=== PATIENT | male | born 1990 ===

== ENCOUNTER → 2018-03-29 | Outpatient (CLI) | payer BC ==
[~2018-03-29] VITALS: Ht 182.9 cm; Wt 119.0 kg
[~2018-03-29] MED LIST: CYMBALTA60 MG PO; FLEXERIL PO; NORCO 5-325 TA1 EACH PO
[2018-03-29 08:54] VITALS: BP 130/90
--- NOTE | 2018-03-29 09:04 | NUR ---
Pain Clinic Assessment: 1. History of Osteoarthritis: Not Applicable History of Rheumatoid Arthritis: Not Applicable 2. Height: 6 ft. 0 in. 182.9 cm. Weight: 262.4 lb. oz. 119.024 kg. Patient's BMI: 35.6 3. Vital Signs: BP: 130/90 Pulse: 96 Resp: 16 Temp: 02 Sat: 97 ECG Mon: 4. Pain Intensity: 5 5. Fall Risk: Dizziness: N Needs help standing or walking: N Fallen in the last 3 months: N Fall risk comments: 6. Patient on Blood Thinner: None 7. History of Hypertension: N 8. Opioid Therapy greater than 6 weeks: N Opiate Contract Signed: 9. Risk Assessment Tool Provided: 10. Functional Assessment Tool: 11. Recreational Drug Use: Never Drug Type: Tobacco Use: Current Some Day Smoker Tobacco Type: Cigars Amount or Packs/day: 1 YEAR How Many Years: Alcohol Use: Yes Frequency: Special Occasions Quant: 1-2
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
== END | disposition home or self-care (01) ==
LOC: PAIN 08:35
DX: G97.1 Other reaction to spinal and lumbar puncture (principal); M54.5 Low back pain; M54.6 Pain in thoracic spine; G89.29 Other chronic pain; F17.210 Nicotine dependence, cigarettes, uncomplicated; Z88.0 Allergy status to penicillin; Z88.2 Allergy status to sulfonamides; Z98.890 Other specified postprocedural states; Z79.899 Other long term (current) drug therapy; Z79.891 Long term (current) use of opiate analgesic

== ENCOUNTER → 2018-04-26 | Outpatient (CLI) | payer BC ==
[~2018-04-26] VITALS: Ht 182.9 cm; Wt 118.8 kg
[2018-04-26 08:48] VITALS: BP 124/86
--- NOTE | 2018-04-26 08:49 | NUR ---
Pain Clinic Assessment: 1. History of Osteoarthritis: Not Applicable History of Rheumatoid Arthritis: Not Applicable 2. Height: 6 ft. 0 in. 182.9 cm. Weight: 262.0 lb. oz. 118.843 kg. Patient's BMI: 35.5 3. Vital Signs: BP: 124/86 Pulse: 91 Resp: 18 Temp: 02 Sat: 97 ECG Mon: 4. Pain Intensity: 5 5. Fall Risk: Dizziness: Y Needs help standing or walking: N Fallen in the last 3 months: N Fall risk comments: 6. Patient on Blood Thinner: None 7. History of Hypertension: N 8. Opioid Therapy greater than 6 weeks: N Opiate Contract Signed: 9. Risk Assessment Tool Provided: 10. Functional Assessment Tool: 11. Recreational Drug Use: Never Drug Type: Tobacco Use: Current Some Day Smoker Tobacco Type: Amount or Packs/day: How Many Years: Alcohol Use: Yes Frequency: Weekly Quant: 1
--- NOTE | 2018-05-03 07:49 | HPC ---
[facility] [address] [place] [address] PAIN MANAGEMENT CONSULTATION Name: SERA LEONG Room #: REG CLDianelys M.R.#: [id number] Admission: 04/26/18 ������������������ Attend Phys: Jones Rosales DO Discharge: ������������������ Date of : 92 Report #: [id number] THIS REPORT FOR: //name// CC: Dr. Nhan Justin DATE OF SERVICE: 04/26/2018 CHIEF COMPLAINT: Myofascial pain. HISTORY OF PRESENT ILLNESS: As you know, the patient is a 27-year-old male who we saw in consultation per the request of his neurosurgeon, Dr. Justin to undergo an epidural blood patch to address post-dural puncture headache. He did very well with that procedure with 100% resolution of his headache pain. He apparently returned to see Dr. Justin recently and he was diagnosed with myofascial pain, referred to our clinic to trial trigger point injections. He indicates pain level of 5/10 today. He denies injury or trauma that may have led to symptom occurrence. He states that he is being evaluated for possible surgical options, but the myofascial symptoms became intense enough that the patient was referred to our clinic to trial trigger point injections. He indicates pain is exacerbated with certain activities, improves with rest and relaxation. ALLERGIES: PENICILLIN, SULFAMETHOXAZOLE, TRIAMTERENE, and AMOXICILLIN. CURRENT MEDICATIONS: Duloxetine 60 mg once a day, hydrocodone 5/325 one tab p.o. q. 4 hours p.r.n. for pain, and Flexeril 10 mg p.o. at bedtime. SOCIAL HISTORY: The patient is a nonsmoker. He denies IV or illicit drug use. He denies any chronic alcohol use. He apparently is working, not receiving workmen's compensation, unaccompanied today. IMAGING: There is no new imaging available. PHYSICAL EXAMINATION: VITAL SIGNS: Blood pressure 124/86, pulse is 91, respiratory rate 18 and unlabored. The patient is 97% on room air, height 6 feet tall, weight 262 pounds, BMI calculated 35.5. GENERAL: Well-developed, well-nourished, well-hydrated exogenously obese 27-year-old male appearing stated age. He is in no acute distress. He is awake, alert, and oriented x3. Pain is rated around 5/10. HEENT: Normocephalic, atraumatic. Pupils equal, round, reactive to light. EXTREMITIES: Show no clubbing, no cyanosis, no edema. MUSCULOSKELETAL: The patient has multiple tender points throughout the thoracic and lumbar area. We were able to elicit 16 different [place] [address] PAIN MANAGEMENT CONSULTATION Name: SERA LEONG Room #: REG CLDianelys Amin#: [id number] Admission: 04/26/18 ������������������ Attend Phys: Jones Rosales DO Discharge: ������������������ Date of : 92 Report #: [id number] paraspinal musculature of the thoracic and lumbar area. There is no noted spinous process tenderness. Muscle strength is equal and symmetrical in upper and lower extremities 5/5. Deep tendon reflexes are symmetrical as well in upper and lower extremities. ASSESSMENT: 1. Myofascial pain. 2. Muscle spasms. 3. Intractable pain. PLAN: 1. The patient has been referred back to our clinic to trial trigger point injections to determine if this can improve the patient's myofascial symptoms. By physical exam today, it does appear he is suffering from some myofascial issues. They appeared to be fairly minor at this point though the patient is complaining of pain at 5/10. He indicates he is unable to go about activities of daily living due to this pain generation. He has requested the trigger point injections be provided today. We had 16 different trigger points 8 on the right and 8 on the left in pairs correlating the patient's symptoms. We discussed the risks and benefits of this procedure. The following was discussed with the patient today. 2. We discussed the risks that include but are not necessarily limited to bleeding, bruising, infection, worsening pain, no relief of pain, also risk of temporary or permanent muscle weakness, temporary or permanent nerve damage, possible paralysis, pneumothorax, and . The patient states understood and wished to proceed. 3. No medication changes made at today's visit. The patient will continue current medication management as prior prescribed. 4. We will see the patient back in followup visit on an as needed basis. PROCEDURE NOTE: DESCRIPTION OF PROCEDURE: Trigger point injections. After obtaining written consent, the patient was placed in a supine position, by palpating using a single finger 16 trigger points were identified that caused the patient's typical radiating pain pattern. These were marked and sterilely prepped with chlorhexidine. A 27-gauge 1-1/4 inch needle was then advanced into each of the trigger points until the patient's typical radiating pain pattern was reproduced. After negative aspiration for heme, 1 mL of a solution containing 1 mL 40 mg per mL, 40 mg total triamcinolone, and 15 mL of bupivacaine 0.5% injected in a fanned out distribution at each of the sites for a total of 16 mL of solution being provided. Sterile bandages were placed over each injection sites. [address] [address] PAIN MANAGEMENT CONSULTATION Name: SERA LEONG Room #: REG CLI Deyanira.#: [id number] Admission: 04/26/18 ������������������ Attend Phys: Jones Rosales DO Discharge: ������������������ Date of : 92 Report #: [id number] The patient tolerated procedure well, carefully escorted to recovery room in stable condition. VAS rated at 5/10 before procedure, 4/10 after procedure. After meeting discharge criteria, the patient discharged home. ��������������������������������������������� <ELECTRONICALLY SIGNED> ���������������������������������������� By: Jones Rosales DO ��������������������������������������������� 05/03/18 0749 0729 0917 Jones Rosales DO /nt
== END | disposition home or self-care (01) ==
LOC: PAIN 06:58
DX: M79.18 Myalgia, other site (principal); G89.29 Other chronic pain; F17.200 Nicotine dependence, unspecified, uncomplicated; Z79.891 Long term (current) use of opiate analgesic; Z88.0 Allergy status to penicillin; Z88.2 Allergy status to sulfonamides; Z88.8 Allergy status to other drugs, medicaments and biological substances; Z98.890 Other specified postprocedural states

== ENCOUNTER → 2018-05-23 | Outpatient (CLI) | payer BC ==
[~2018-05-23] VITALS: Ht 182.9 cm; Wt 117.7 kg
[2018-05-23 08:59] VITALS: BP 118/72
--- NOTE | 2018-05-23 09:19 | NUR ---
Pain Clinic Assessment: 1. History of Osteoarthritis: Not Applicable History of Rheumatoid Arthritis: Not Applicable 2. Height: 6 ft. 0 in. 182.9 cm. Weight: 259.4 lb. oz. 117.663 kg. Patient's BMI: 35.2 3. Vital Signs: BP: 118/72 Pulse: 96 Resp: 14 Temp: 02 Sat: 96 ECG Mon: 4. Pain Intensity: 5 5. Fall Risk: Dizziness: Y Needs help standing or walking: N Fallen in the last 3 months: N Fall risk comments: 6. Patient on Blood Thinner: None 7. History of Hypertension: N 8. Opioid Therapy greater than 6 weeks: N Opiate Contract Signed: 9. Risk Assessment Tool Provided: 10. Functional Assessment Tool: 11. Recreational Drug Use: Never Drug Type: Tobacco Use: Current Some Day Smoker Tobacco Type: Cigars Amount or Packs/day: How Many Years: Alcohol Use: Yes Frequency: Weekly Quant:
--- NOTE | 2018-05-24 09:13 | HPC ---
[facility] [address] [place] [address] PAIN MANAGEMENT CONSULTATION Name: SERA LEONG Room #: REG CLI M.R.#: [id number] Admission: 05/23/18 ������������������ Attend Phys: Jones Rosales DO Discharge: ������������������ Date of : 92 Report #: [id number] THIS REPORT FOR: //name// CC: Jones Justin MD DATE OF SERVICE: 05/23/2018 CHIEF COMPLAINT: Myofascial pain. HISTORY OF PRESENT ILLNESS: As you know, the patient is a 27-year-old male who was seen in our clinic, 03/29/2018 per the request of Dr. Justin for the patient to undergo an epidural blood patch for post-dural puncture headache. We had complete resolution of symptoms after a single epidural blood patch performed on that day. He was referred back to our clinic on 04/26/2018 complaining of myofascial pain involving the thoracic and lumbar area. This referral was per the request of Dr. Justin to undergo trigger point injections for which the patient underwent the procedure on that visit. He reports on return visit today, he received 24 hours' worth of pain relief, but his pain subsequently returned to a level of 5/10. He returns to discuss options for treatment given the lack of efficacy with the trigger point injections. ALLERGIES: PENICILLIN, SULFAMETHOXAZOLE, TRIAMTERENE, AMOXICILLIN. CURRENT MEDICATIONS: Duloxetine 60 mg once a day, hydrocodone 5/325 one tab p.o. q. 4 hours p.r.n. for pain, Flexeril 10 mg p.o. at bedtime. SOCIAL HISTORY: The patient is a nonsmoker. Denies IV or illicit drug use. Denies any chronic alcohol use. He is working, not receiving workmen's compensation, unaccompanied today. IMAGING: No new imaging available. PHYSICAL EXAMINATION: VITAL SIGNS: Blood pressure 118/72, pulse 96, respiratory rate 14 and unlabored. The patient is 96% on room air, height 6 feet tall, weight 259.4 pounds, BMI calculated 35.2. GENERAL: Well-developed, well-nourished, well-hydrated exogenously obese 27-year-old male. He appears in no acute distress, awake, alert and oriented x 3, pain is rated at 5/10. HEENT: Normocephalic, atraumatic. Pupils equal, round, reactive to light. Speech fluent. The patient deemed a fair historian. EXTREMITIES: Show no clubbing, no cyanosis, no edema. MUSCULOSKELETAL: The patient once again has multiple tender points, no specific trigger points throughout the thoracic and lumbar paraspinal musculature. [address] [address] PAIN MANAGEMENT CONSULTATION Name: SERA LEONG Room #: REG CLDianelys M.R.#: [id number] Admission: 05/23/18 ������������������ Attend Phys: Jones Rosales DO Discharge: ������������������ Date of : 92 Report #: [id number] Muscle strength equal and symmetrical upper and lower extremities. Deep tendon reflexes are symmetrical in upper and lower extremities. Provocating testing is negative. ASSESSMENT: 1. Myofascial pain. 2. Chronic muscle spasms. 3. Chronic intractable pain. PLAN: 1. The patient returns today in followup visit indicating only 24-hour improvement with the trigger point injections requested at last visit. I would recommend at this time that patient look for more conservative treatment options given the lack of long-term efficacy with trigger point injections. He should have seen at least 2-3 weeks' worth of improvement with the trigger point injection and we cannot continue to provide steroid exposures for limited benefit. We have recommended that the patient look towards more conservative treatment options. There does not appear to be any specific and consistent pain generator in this patient's case other than myofascial symptoms. 2. We recommend the patient either look towards physical therapy, stretching exercises and core strengthening. Apparently, he trialled physical therapy one single time, I do not feel he gave this treatment option any significant effort. We recommend strongly that the patient start a consistent physical therapy program, stretching exercise, core strengthening and possibly even modalities. We will defer to the primary team for referrals to physical therapy. The patient is not interested in us referring the patient out for this most appropriate option. 3. The patient has requested that we suggest the possibility of transitioning the patient from his current muscle relaxant to tizanidine. We recommend somewhere between 4 and 6 mg dose. I did advise the patient if he is on tizanidine, he is not to drive or operate heavy equipment while on the medication as it can lead to somnolence, decreased mental acuity, disorientation, confusion and mental slowing. We will defer to the primary team if they wish to initiate a change in medication management. 4. We have recommended possibly looking towards myofascial release techniques and acupuncture therapy. We discussed this with the patient in our initial visit and rediscussed this today. This could be quite beneficial for the patient. Acupuncture therapy has been shown to be quite effective in treating myofascial symptoms and is the number one source of pain relief for 1.5 billion people. This could be an effective treatment option. He was given the name of a practitioner in the area, someone that we have had patient experience with in the past that has done very well. 5. We wish to thank Dr. Justin for the re-referral of the patient to our clinic. At this point, I recommend a conservative treatment. From a trigger standpoint, I do not feel the patient is noting improvement enough to continue this option. He is not a candidate for other interventional therapies. We [facility] [address] [place] [address] PAIN MANAGEMENT CONSULTATION Name: SERA LEONG Room #: REG CL MKatey.#: [id number] Admission: 05/23/18 ������������������ Attend Phys: Jones Rosales DO Discharge: ������������������ Date of : 92 Report #: [id number] recommend more conservative options as indicated above. Again, we wish to thank you for the opportunity to see the patient in consultation. We will be returning his care to your capable hands. ��������������������������������������������� <ELECTRONICALLY SIGNED> ���������������������������������������� By: Jones Rosales DO ��������������������������������������������� 05/24/18 0913 1221 [id number] Jones Rosales DO /nt
== END ==
LOC: PAIN 05-16 14:42
DX: M79.18 Myalgia, other site (principal); G89.4 Chronic pain syndrome; Z79.899 Other long term (current) drug therapy